=== PATIENT | female | born 1980 | race Caucasian/White ===

== ENCOUNTER 2020-05-24 12:11 | Inpatient (IN) | payer OTHER ==
[~2020-05-24] VITALS: Ht 162.6 cm; Wt 72.0 kg
--- NOTE | ~2020-05-24 | DS ---
[facility] [address], [place] [address] Draft ADMISSION DATE: 05/24/2020 DISCHARGE DATE: 05/26/2020 REASON FOR ADMISSION: This 39-year-old white woman is known to me from the past having undergone pilonidal excision in 1999. She presented to [facility] on May 22, 2020 with right-sided abdominal tenderness and findings consistent with urinary tract infection. A CT scan was performed, which did not show abnormality of the gallbladder or elsewhere. A dose of Rocephin was given intravenously and she was discharged to home with Levaquin. She returned to the emergency room the following day, May 23, 2020 with unremitting severe right-sided abdominal pain, tenderness and fever and white count elevation of greater than 24,000. A CT scan was repeated which showed marked dilation of the gallbladder, thickening of the gallbladder wall, and findings consistent with acute cholecystitis. She was transferred from [place] to [place] after conferring with her primary provider, Dr. Parsons. PERTINENT PHYSICAL EXAMINATION: GENERAL: A pleasant white woman, accompanied by her . VITAL SIGNS: Temperature 98.3, pulse 86, blood pressure 104/68, room air saturation is 100%. NECK: Normal. CHEST: Clear. HEART: Regular without murmur. ABDOMEN: Mildly obese. There was marked tenderness in the right upper abdomen. No palpable mass. She had no ascites. EXTREMITIES: Showed no clubbing, cyanosis, or edema. LABORATORY STUDIES: From [facility] were reviewed showing urinalysis with 50 white cells per high-power field, moderate bacteria, specific gravity is 1.025, pH 7.0. Liver enzymes were normal. CBC showed elevated white count as previously noted. HOSPITAL COURSE: The patient is admitted in the evening, given fluid resuscitation, IV antibiotics, broad-spectrum meropenem considering the extent of inflammation, tenderness, and so forth. On May 25, 2020, she underwent laparoscopic cholecystectomy with intraoperative cholangiogram. The gallbladder was impressively markedly thickened and inflamed with both chronic and acute inflammatory changes. Decompression of the gallbladder showed clear bile indicative of longstanding outlet obstruction of the PATIENT NAME: RUTH FLOWERS DISCHARGE SUMMARY DATE OF : 78 REPORT #: [id number] PHYSICIAN: JAIRO WHITFIELD MD PCP: NO PRIMARY CARE PHYSICIAN REPORT IS CONFIDENTIAL AND NOT TO BE RELEASED WITHOUT AUTHORIZATION [facility] [address], [place] [address] Draft gallbladder itself. Despite the difficulty, laparoscopic cholecystectomy was performed safely. Cholangiogram was normal. A drain was placed. She had prompt improvement of her symptoms and was able to tolerate a regular diet the following day. She is anticipated to discharge. A drain was placed to the operation and showed no sign of bile leak and it was removed prior to discharge. DISCHARGE MEDICATIONS: Include: 1. Motrin 600 mg p.o. q.6 hours as needed for pain #60. 2. Percocet 7.5/325 1-2 p.o. q.6 hours p.r.n. pain #10. 3. Tylenol 500 mg two tablets p.o. q.6 hours as needed for pain #60. 4. She would be advised to continue with her Levaquin antibiotic that was prescribed for urinary tract infection. FOLLOWUP PLAN: She is return to see me in approximately 4 weeks. If she has problems in the meantime, she will let me know. She is to avoid lifting more than 20 pounds for the next 2 weeks, should walk on a daily basis with Steri-Strips in place and okay to shower tomorrow. DISCHARGE DIAGNOSES: 1. Severe acute on chronic calculous cholecystitis. 2. Status post laparoscopic cholecystectomy with intraoperative cholangiogram on May 25, 2020. 3. History of pilonidal excision, age 19. 4. History of x2. 5. History of hysterectomy. 6. Recent urinary tract infections. MD JOSE Bustamante/GLADYSL /[id number] cc: Reyna Jiménez PA-C PATIENT NAME: RUTH FLOWERS DISCHARGE SUMMARY DATE OF : 78 REPORT #: [id number] PHYSICIAN: JAIRO WHITFIELD MD PCP: NO PRIMARY CARE PHYSICIAN REPORT IS CONFIDENTIAL AND NOT TO BE RELEASED WITHOUT AUTHORIZATION [facility] [address] [facility] [place] [address] Draft Jimmy Parsons MD Copies: JIMMY PARSONS MD ~ PATIENT NAME: LIONELRUTH Schmidt DISCHARGE SUMMARY DATE OF : 78 REPORT #: [id number] PHYSICIAN: JAIRO WHITFIELD MD PCP: NO PRIMARY CARE PHYSICIAN REPORT IS CONFIDENTIAL AND NOT TO BE RELEASED WITHOUT AUTHORIZATION
--- NOTE | 2020-05-24 15:21 | NUR ---
PT BROUGHT VIA MED TRANSPORT TO [facility]. PT IS ALERT AND COOPERATIVE, SELF TRANSFERS TO BED. IV SITE PREVIOUSLY ESTABLISHED FLUSHES WELL AND APPEARS INTACT WITH FLUID INFUSING. PT ORIENTED TO THE ROOM DENIES QUESTIONS OR NEEDS THOUGH SHE RATES PAIN 6-7/10. STATES SHE HAS BEEN VERY PAINFUL FOR DAYS WITH NO REAL RELIEF. HOT PACK PROVIDED PRIOR TO MED ORDERS FROM DR WHITFIELD. PAIN MANAGEMENT ED PROVIDED PT VERBALIZES USDERSTANDING.
--- NOTE | 2020-05-24 15:59 | NUR ---
PT IS PRESENT IN THE ROOM. PT RESTING IN BED TV IS ON. SHE STATES SHE IS STILL VERY PAINFUL AT 7/10. 4 MG OF MORPHINE ADMINISTERED.
--- NOTE | 2020-05-24 16:24 | NUR ---
SWABBED BOTH NARES FOR RAPID COVID TEST
--- NOTE | 2020-05-24 16:35 | NUR ---
DR WHITFIELD IN TO SEE PT DISCUSSES DX AND NEED FOR SURGERY. ALL QUESTIONS ANSWERED. IS PRESENT.
[2020-05-24] MEDS ORDERED: IBUPROFEN200 MG PO (17:15)
--- NOTE | 2020-05-24 17:16 | NUR ---
MED REC COMPLETE
--- NOTE | 2020-05-24 17:58 | NUR ---
PT AGREES SHE IS COMFORTABLE STATES THIS IS THE FIRST TIME IN DAYS SHE HAS FELT RELAXED. WARM BLANKET PROVIDED, SCD'D IN PLACE.
--- NOTE | 2020-05-24 18:41 | NUR ---
PATIENT IN BED RESTING. RN IN ROOM TO HAVE PATIENT SIGN CONSENT. VITALS AND I&O'S CHARTED. CALL LIGHT IN REACH. NO FURTHER NEEDS AT THIS TIME.
--- NOTE | 2020-05-24 19:05 | NUR ---
REPORT RECEIVED FROM DAY SHIFT RN. PT LYING IN BED ALERT AND ORIENTED. REPORTS PAIN IS TOLERABLE AT THIS TIME. DENIES NAUSEA. IV ABX INFUSING. UP TO BR WITH MINIMAL SBA TO VOID. GAIT STEADY. BACK TO BED. SCD'S INTACT. POPSICLE PROVIDED PER REQUEST. WHITE BOARD UPDATED. CALL LIGHT IN REACH.
--- NOTE | 2020-05-24 20:00 | NUR ---
PT REQUESTING TO SHOWER. AGREES TO WAIT UNTIL IV ABX INFUSION COMPLETE. PT REPORTS ABD PAIN 10/29. PRN FOR PAIN ADMINISTERED PER EMAR.
--- NOTE | 2020-05-24 21:37 | NUR ---
V/S AND I&O DONE. WARM BLANKETS PROVIDED. ICE WATER REFILLED AND REGULAR SODA PROVIDED.
--- NOTE | 2020-05-24 21:45 | NUR ---
PT SHOWERED. BACK IN BED AT THIS TIME, MAMADOU WELL. SCD'S INTACT. IVF INFUSING. ASSESSMENT COMPLETE. BT ACTIVE. ABD DISTENDED AND SOFT. SCHEDULED MEDS ADMINISTERED. PRN ADMINISTERED FOR PAIN AND NAUSEA. CLEAR LIQUIDS PROVIDED PER REQUEST. PT DENIES QUESTIONS OR CONCERNS. CALL LIGHT IN REACH.
--- NOTE | 2020-05-25 00:07 | NUR ---
PT IN BED WITH EYES CLOSED. AWAKENS WHEN THIS DIRECTOR OF REHABILITATION ENTERS ROOM. LIQUIDS REMOVED. PT AWARE OF NPO STATUS. DENIES NEEDS.
--- NOTE | 2020-05-25 01:50 | NUR ---
0130- CALL LIGHT ANSWERED. PT RATES ABD PAIN 10/10. PRN FOR PAIN ADMINISTERED. IV ABX INFUSING PER ORDER. VS COMPLETE, BP NOTED TO BE LOW. PT ASYMPTOMATIC. UP TO BR TO VOID 200 ML CONCENTRATED URINE. GAIT STEADY. BACK TO BED, MAMADOU FAIR. 0150- PT CONTINUES TO RATE ABD PAIN 8/10. ADDITIONAL PRN ADMINISTERED FOR PAIN. PT STATES "I WAITED TOO LONG" FOR PAIN MEDICATION. DISCUSSED MORE FREQUENT DOSING TO PREVENT OUT OF CONTROL PAIN. WARM BLANKET PROVIDED. PT REMAINS NPO. ORAL SWABS PROVIDED.
--- NOTE | 2020-05-25 03:00 | NUR ---
CALL LIGHT ANSWERED. PT REPORTS ABD PAIN 10/29. PRN FOR PAIN ADMINISTERED PER ORDER. WARM PACK PROVIDED FOR COMFORT. NO FURTHER NEEDS. CALL LIGHT IN REACH.
--- NOTE | 2020-05-25 05:11 | NUR ---
IN TO ROUND ON PT. PT OPENS EYES WHEN THIS METALSMITH HELPER ENTERS ROOM. REPORTS ABD PAIN 6/10 AND SOME NAUSEA. PRN FOR PAIN AND NAUSEA ADMINISTERED PER EMAR. IV ABX COMPLETE. IVF INFUSING. PT DENIES FURTHER NEEDS. CALL LIGHT IN REACH.
--- NOTE | 2020-05-25 07:03 | NUR ---
VS AND I&O COMPLETE. PRN ADMINISTERED FOR 10/29 ABD PAIN. PT DENIES NAUSEA AT THIS TIME. UP TO BR WITH MINIMAL SBA TO VOID 100 ML CONCENTRATED URINE. PT DENIES PAIN WITH URINATION. BACK TO BED, MAMADOU WELL.
--- NOTE | 2020-05-25 07:38 | NUR ---
this rn recieved report jacque love. pt laying in bed with call light within reach and states pain is mangable at this time
--- NOTE | 2020-05-25 07:45 | NUR ---
THIS RN IN PTS ROOM TO START A NEW IV ON PT. PT TOELRATED WELL
--- NOTE | 2020-05-25 08:05 | NUR ---
THIS RN IN TO GIVE PT HIS MORNING MEDS. PT STATES THAT HE HAS SOME INCREASED PAIN FROM THE ULTRASOUND. THIS RN [facility]
--- NOTE | 2020-05-25 08:35 | NUR ---
THIS RN IN PTS ROOM TO GIVE PT HER MORNING MEDS AND SOME DILUADID FOR PTS PAIN. THIS RN ALSO PROVIDED PT WITH 4MG OF ZOFRAN TO GET PT UP TO A TOTAL OF 8MG OF ZOFRAN IN 4 HRS.
--- NOTE | 2020-05-25 09:30 | NUR ---
THIS RN IN PTS ROOM DUE TO PT REPORTING THAT HE WAS HAVING SOME NAUSEA. PT STATES THAT HE DOESN'T NEED ANY MEDS AT THIS TIME.
--- NOTE | 2020-05-25 09:55 | NUR ---
THIS RN IN PTS ROOM TO GIVE PT MORE DILUADID PER PT REQUEST, DAVID BUSTILLO IN PTS ROOM TO DO PTS VITAILS. PTS HAS A FEVER OF 101.1. THIS RN CALLED - RN OBTAINED VERBAL ORDER FROM TO GIVE PT 1GM OF IV TYLENOL.
--- NOTE | 2020-05-25 10:10 | NUR ---
PATIENT AWAKE IN BED, IN ROOM. VITALS AND I&OS CHARTED. RN NOTIFIED OF 101.1 TEMP
--- NOTE | 2020-05-25 10:15 | NUR ---
THIS RN STARTED PT ON IV TYLENOL.
--- NOTE | 2020-05-25 10:30 | NUR ---
THIS RN TO START NEW ANTIBIOTIC AND GIVE PT 10MG OF OXY AT THIS TIME. PT STATES THAT HE IS DOING OKAY FOR NOW ON NAUSEA
--- NOTE | 2020-05-25 10:40 | NUR ---
PT OFF FLOOR FOR PROCEDURE
--- NOTE | 2020-05-25 13:29 | NUR ---
05/25/20 1329 Brianna Tesfaye 1316 PT ARRIVED IN PACU NON RESPONSIVE TO NOXIOUS STIMULI WITH OPA IN PLACE.
--- NOTE | 2020-05-25 14:17 | NUR ---
PT TAKEN TO OR FOR SURGERY. WAITING IN RM. GAVE ENCOURAGEMENT, DR WHITFIELD ENTERS RM. SURGERY COMPLETE AND IS EXPLAINING TO . GAVE HIM A BLESSING, WILL FOLLOW
--- NOTE | 2020-05-25 14:30 | NUR ---
PT ARRIVED BACK FROM SURGERY AT THIS TIME. PT HAS 3 INSCION SITES AND 1 ALICIA SITE IN THE RIGHT LOWER QUADRANT. ALL ARE CLEAN DRY INTACT. PT ABLE TO STAND UP AND VOID. PT STILL NAUSEOUS. THIS RN CALLED TO GET A NEW ORDER FOR NAUSEA MEDICATION DUE TO PATIENT HAVING 8MG OF ZOFRAN IN 6HRS. THIS RN RECEIVED VERBAL ORDERS OVER THE PHONE TO GIVE PT 12.5MG PHENERGAN Q6HRS.
--- NOTE | 2020-05-25 15:30 | NUR ---
THIS RN IN PTS ROOM TO CEK ON PT FOR POST OPP. PT ALERT AND ORIENTED AT THIS TIME. PT STATES TAHT SHE IS DOING BETTER AFTER 0.5MG DILUADID AND 12.5MG OF PHENERGAN. SURGICAL SITES AND ALICIA DRAIN WNL AT THIS TIME
--- NOTE | 2020-05-25 16:38 | NUR ---
PT RESTING AT THIS TIME. PT ON ROOM AIT AND SATING WELL. PT STATES THAT SHE HAS NO PAIN AND HER NAUSEA COMES AND GOES. INCISIONS ARE ALL CLEAN/ DRY/ INTACT
--- NOTE | 2020-05-25 19:10 | NUR ---
REPORT RECEIVED FROM DANIAL MEADOWS. PATIENT A+O IN BED, IVF INFUSING WNL. ALICIA DRAIN IN PLACE, WNL. PT REPORTS SLIGHT, TOLERABLE PAIN. MADE PLAN FOR PRN MEDICATIONS. PT STATES NO IMMEDIATE NEEDS, CALL LIGHT IN REACH.
--- NOTE | 2020-05-25 20:10 | NUR ---
IN TO GET PT VITALS WITH RN, RN FINISHED UP WITH PT
--- NOTE | 2020-05-25 20:20 | NUR ---
MEDICATIONS ADMINISTERED, PRN DILAUDID AND TORADOL ADMINISTERED FOR 8/10 PAIN. IVF INFUSING WNL. PT AMBULATED TO BR BY SELF TO VOID. ALICIA DRAIN EMPTIED, 20 ML SEROSANGUINOUS. BOWEL TONES ACTIVE, MILD ABD DISTENTION. WARM BLANKET, ICE PACK, HOT PACK FOR BACK PAIN, ICE CHIPS, POPSICLE PROVIDED. NEW IVF HANGING. NO OTHER NEEDS AT THIS TIME, CALL LIGHT IN REACH.
--- NOTE | 2020-05-25 22:27 | NUR ---
PHONE CALL FROM PATIENTS BROTHER. TRANSFERRED TO PATIENT ROOM PER PATIENT OKAY. PHONE IN REACH.
--- NOTE | 2020-05-25 22:43 | NUR ---
PT CALLED AND REQUESTED PRN DILAUDID AND MOTRIN, ADMINISTERED. DISCUSSED IV MEDS VERSUS PO MEDS WITH PATIENT, SHE REPORTS 8/10 PAIN AND WOULD LIKE TO CONTINUE WITH IV MEDICATIONS AT THIS CURRENT TIME. RESTING IN BED, NEW HOT PACK FOR BACK PAIN PROVIDED, IVF INFUSING WNL. CALL LIGHT IN REACH.
--- NOTE | 2020-05-26 00:05 | NUR ---
PT CALLED, REQUESTS TO WALK IN HALLWAY AND FOR PRN PAIN MEDICATION. WALKED 1 FULL LAP IN HALLWAY WITH THIS RN, TOLERATED FAIRLY WELL, PRN PERCOCET ADMINISTERED. IVF INFUSING WNL. NO FURTHER REQUESTS. CALL LIGHT IN REACH
--- NOTE | 2020-05-26 02:14 | NUR ---
IN TO GET 2AM VITALS, RN IN TO HANG IV FLUIDS, NO FURTHER NEEDS AT THIS TIME
--- NOTE | 2020-05-26 02:19 | NUR ---
VITALS COMPLETE. PT STATES UNCOMFORTABLE, PAIN LEVEL 7/10. WARM BLANKETS AND PRN TYLENOL GIVEN. NO FURTHER NEEDS, CALL LIGHT IN REACH
--- NOTE | 2020-05-26 03:40 | NUR ---
ROUNDED ON PATIENT, RESTING IN BED WITH EYES CLOSED, BREATHING EVEN AND UNLABORED. IVF INFUSING WNL. CALL LIGHT IN REACH
--- NOTE | 2020-05-26 05:42 | NUR ---
IN TO GET VITALS, I&Os ARE DONE, FRESH ICE WATER AND SODA GIVEN, NO FURTHER NEEDS AT THIS TIME
--- NOTE | 2020-05-26 05:47 | NUR ---
PRN PERCOCET AND MOTRIN ADMINISTERED FOR 9/10 PAIN. PT TEARY, GRIMACING AND BRACING ABDOMEN. WARM PACK GIVEN FOR BACK PAIN. REPOSITIONED IN BED. VITALS AND I/O'S COMPLETE. ALICIA EMPTIED, 10 ML LIGHT YELLOW DRAINAGE. LAP SITES GAS ENGINE OPERATOR WITH STERI STRIPS, WNL. NEW BAG IVF HUNG. CALL LIGHT IN REACH.
--- NOTE | 2020-05-26 07:10 | NUR ---
SHIFT REPORT FROM GENESIS MEADOWS INCLUDED: Pt 1 day post lap-choley. Pt has been needing all of her PRN IV and PO meds for pain control issues throughout the nightshift. Pt has lap sites x3 and a ALICIA drain that put out 30mls throughout nightshift. Pt had an otherwise uneventful evening. Pt currently resting in bed, wakes to our entry. Pt reports that her pain is "much better now" and denies nausea at this time. Pt denies further needs at this time. Pt in bed, table and call light within reach.
--- NOTE | 2020-05-26 09:15 | NUR ---
MED PASS + ASSESSMENT Pt assessment complete, VSS, BP still somewhat soft. Pt reports that her BP has been staying low since they started giving her the dilaudid and narcotics. Pt denies nausea and dizziness at this time. Pt had about 40% of her breakfast. Pt reports 5/10 pain in her incision sites, PRN tylenol given. Pt lap sites x3 are all dry and intact, scant dried blood on steri strips to sites. ALICIA drain site CDI and draining serosanguenous fluid. Pt bowel tones hypoactive, pt reports passing gas but denies BM. Pt refuses up to chair, but verbally agrees to ambulate with this RN or TESTING ANALYST "after the tylenol has some time to kick in". Pt in bed, lying down, table and call light within reach.
[2020-05-26] MEDS ORDERED: ACETAMINOPHEN500 MG PO (10:05)
[2020-05-26] MEDS ORDERED: IBUPROFEN600 MG PO (10:05)
[2020-05-26] MEDS ORDERED: OXYCODON-ACETA1 EAC2 PO (10:05)
--- NOTE | 2020-05-26 10:16 | OR ---
[facility] [address], [place] [address] Signed DATE OF OPERATION: 05/25/2020 SURGEON: Jairo Whitfield MD PREOPERATIVE DIAGNOSIS: Severe acute calculous cholecystitis. POSTOPERATIVE DIAGNOSES: 1. Severe calculous cholecystitis with fibrosis, multiple gallstones, and "white bile of gallbladder". 2. Papillary skin lesion right upper quadrant. PROCEDURES: 1. Laparoscopic cholecystectomy with intraoperative cholangiogram, prolonged, complicated, difficult. 2. Surgeon-directed fluoroscopy. 3. Excision of skin lesion, right upper quadrant 6 mm. ANESTHESIA: General endotracheal, Bernardo Alex, CLINICAL ORTHOPTIST and local 20 mL of 0.25% Marcaine with epinephrine. INDICATION: This 39-year-old white woman was referred by Dr. Jimmy Beasley from [place], [place] yesterday with a rather severe right subcostal tenderness and [place] [address], but with normal liver enzymes. She was found on CT scan to have a markedly thickened and dilated gallbladder. A CT scan only a few days before had shown no evidence of cholecystitis and she was thought to have symptoms related to urinary tract infection as she did have an abnormal urinalysis. She was accepted in transfer yesterday, has been given fluid resuscitation, broad-spectrum antibiotic meropenem for pain control and now to undergo cholecystectomy preferred by laparoscopic approach. The patient and her understand well. The risks of bleeding, infection, bile duct injury, need for open procedure, failure to cure the problem, and other unforeseen complications. Understanding this, they wished to proceed. FINDINGS: There were omental adhesions in the region of the umbilicus related to prior Electronically Signed By: JAIRO WHITFIELD MD 05/26/20 1016 PATIENT NAME: RUTH FLOWERS OPERATIVE REPORT DATE OF : 78 REPORT #: [id number] PHYSICIAN: JAIRO WHITFIELD MD PCP: NO PRIMARY CARE PHYSICIAN REPORT IS CONFIDENTIAL AND NOT TO BE RELEASED WITHOUT AUTHORIZATION [facility] [address], [place] [address] Signed laparoscopic procedure. Care was taken to provide pneumoperitoneum safely. The gallbladder itself was quite markedly inflamed, thickened, leather-like, and completely distended. Decompression showed clear bile consistent with occlusion of the outlet of the gallbladder. Market fibrosis of omental adhesions around the gallbladder were noted. The gallbladder was excised though it was quite a challenge, given the fibrosis extent of thickening and so forth. Once excised, the gallbladder was noted to have marked inflammatory change of the mucosa and multiple yellow mulberry gallstones. Cholangiogram was normal. There was a papillary skin lesion in the right upper quadrant, which was excised as well. DESCRIPTION OF PROCEDURE: The patient was brought to the operating room, given a general endotracheal anesthetic. Preoperative antibiotic meropenem had been given. Sequential compression device stockings were used and heparin subcutaneously administered. After satisfactory general endotracheal anesthesia, the abdomen was prepared with a chlorhexidine solution and draped sterilely. An infraumbilical incision was made noting an inferior circumareolar incision from prior laparoscopy. The abdomen was entered without problem using an open Sudha cannula technique. Omental adhesions were noted at this site. Digital examination showed no sign of bowel loops. Omental adhesions were freed with both electrocautery and blunt dissection to allow for accommodation of the Sudha cannula. Pneumoperitoneum was achieved to a level of 14 mmHg with carbon dioxide gas. Intraabdominal inspection showed no sign of ascites or carcinomatosis. The gallbladder appeared to be densely adherent to the right sub-hepatic area with densely formed omental adhesions around it. An epigastric port was placed and manipulation of the omentum showed it to be in a cocoon configuration, but the gallbladder could be from it. A right midclavicular papular skin lesion was noted. It was medium in pigmentation and was excised fully and passed for pathology. The site was then used as a 5 mm trocar site. An additional right anterior actually 5 mm trocar site was placed as well. The gallbladder could not be grasped. It was tensed, distended, and leathery in its configuration. It was decompressed with a laparoscopic trocar site showing clear bile indicative of course of outlet obstruction from the gallbladder itself. The gallbladder was ultimately able to be grasped and elevated cephalad. The infundibulum was quite amorphous. Dissection was maintained high in the gallbladder and the infundibulum. Dissection carried through the very thick and fibrotic peritoneum. Ultimately, the infundibulum proper could be well identified, and using electrocautery dissection, meticulous care was taken ultimately to identify the cystic duct itself. An angled laparoscopic instrument was placed behind the cystic duct. Photographs were taken. A clip was applied across gallbladder cystic duct junction as high as possible in a transverse choledochotomy made in the cystic duct. Egress of clear bile was noted. Electronically Signed By: JAIRO WHITFIELD MD 05/26/20 1016 PATIENT NAME: RUTH FLOWERS OPERATIVE REPORT DATE OF : 78 REPORT #: [id number] PHYSICIAN: JAIRO WHITFIELD MD PCP: NO PRIMARY CARE PHYSICIAN REPORT IS CONFIDENTIAL AND NOT TO BE RELEASED WITHOUT AUTHORIZATION [address], [place] [address] Signed Using an Dai-type cholangiocatheter, intraoperative cholangiography was undertaken showing free flow of contrast in the biliary tree with prompt emptying into the duodenum. Several views were taken to fully visualize the entire biliary duct. There was no sign of filling defect or biliary anomaly. The catheter was removed and the cystic duct was triply clipped and divided. The gallbladder was then dissected free in a retrograde fashion. Due to fibrosis in the region of the cystic duct, meticulous care was maintained in this area. Ultimately, clips were applied to small branches though fibrotic changes were encompassing the cystic arterial branches quite markedly. Further retrograde dissection was undertaken, never identifying a perfect plane between the gallbladder in the liver that rather identifying quite marked fibrosis and thickening. Obviously, this problem a long-standing one. The gallbladder was entered at one point and the yellow mulberry gallstones were identified. Care was taken to maintain the appropriate plane and ultimately the gallbladder was excised freely. The gallbladder was placed in an endobag and free mulberry yellow gallstones placed in it as well and the gallbladder extracted through the infraumbilical port site. The gallbladder was opened on the back table and found to have seven mulberry yellow gallstones. Two such gallstones were still in the subhepatic space and they were removed with appropriate laparoscopic instrumentation. Irrigation was undertaken in the subhepatic space. There was no sign of bile leak or bleeding. Marked fibrotic changes of a hepatic fossa were noted and CO2 powered Tisseel was applied to the subhepatic space after cautery was once again applied. This provided good hemostasis. Through right-sided trocar site, a 7 mm flat Lance drain was placed in the subhepatic space. It was secured to the skin with nylon suture. Excess irrigation fluid was suctioned free. Evaluation of the umbilical area showed only omental adhesions. No sign of bowel loops in the region. The trocars were removed under direct visualization showing no bleeding. The infraumbilical fascial incision was reapproximated with interrupted 0 Vicryl suture. All wounds were copiously irrigated with saline solution. A 20 mL of 0.25% Marcaine with epinephrine was injected locally. The skin was closed with interrupted 2-0 Vicryl. Steri-Strips were applied. The drain was attached to bulb suction. There was no evidence of bile leak. This operation was prolonged, complicated, and difficult, taken at least 3 times longer than expected all related to this area of inflammation. Jairo Whitfield MD JM/MODL Electronically Signed By: JAIRO WHITFIELD MD 05/26/20 1016 PATIENT NAME: RUTH FLOWERS OPERATIVE REPORT DATE OF : 78 REPORT #: [id number] PHYSICIAN: JAIRO WHITFIELD MD PCP: NO PRIMARY CARE PHYSICIAN REPORT IS CONFIDENTIAL AND NOT TO BE RELEASED WITHOUT AUTHORIZATION [address] [address] Signed /[id number] cc: Alessandra Oneil MD Copies: ALESSANDRA ONEIL MD ~ Electronically Signed By: JAIRO WHITFIELD MD 05/26/20 1016 PATIENT NAME: RUTH FLOWERS Roxana OPERATIVE REPORT DATE OF : 78 REPORT #: [id number] PHYSICIAN: JAIRO WHITFIELD MD PCP: NO PRIMARY CARE PHYSICIAN REPORT IS CONFIDENTIAL AND NOT TO BE RELEASED WITHOUT AUTHORIZATION
--- NOTE | 2020-05-26 10:16 | HP ---
[facility] [address], [place] [address] Signed ADMISSION DATE: 05/24/2020 REASON FOR ADMISSION: Acute cholecystitis. HISTORY OF PRESENT ILLNESS: This 39-year-old white woman is known to me from the past having undergone pilonidal excision in 1999. She presented to [facility] Emergency Room on May 22, 2020 with right-sided abdominal tenderness and findings consistent with urinary tract infection. She was given a dose of Rocephin intravenously and discharged to home with Levaquin. She returned to the emergency room the following day, May 23 with unremitting severe right-sided abdominal tenderness, fever, and elevated white count to 24,000. A CT scan of the abdomen and pelvis with IV and p.o. contrast was obtained, which showed obvious inflammation of the gallbladder, dilation of the gallbladder, gallbladder wall thickening and stranding in the surrounding soft tissue consistent with acute cholecystitis. She is transferred upon discussion with Dr. Parsons, her managing physician to [place] for further management. PAST MEDICAL HISTORY: Surprisingly unremarkable. She did have pilonidal excision as previously noted by me 21 years ago and has since undergone section x2, ultimately total hysterectomy and breast biopsy excision. She has never smoked and she does not drink alcohol. She has no known drug allergies. A COVID-19 test has proven to be negative thus far. SOCIAL HISTORY: She is . She has two children. She lives in [place], [place]. 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 She has no primary care physician otherwise. REVIEW OF SYSTEMS: She denies any shortness of breath or chest pain. She has had no dysphagia, dysuria, hematemesis or blood per rectum. PHYSICAL EXAMINATION: GENERAL: Very pleasant white woman, accompanied by her . CURRENT VITAL SIGNS: Show temperature of 98.3, pulse 86, blood pressure 104/68, room air saturation 100%. NECK: Shows no thyromegaly or cervical adenopathy. Trachea is midline. CHEST: Shows normal respiratory excursion. Electronically Signed By: JAIRO WHITFIELD MD 05/26/20 1016 PATIENT NAME: RUTH FLOWERS HISTORY AND PHYSICAL DATE OF : 78 REPORT #: [id number] PHYSICIAN: JAIRO WHITFIELD MD PCP: NO PRIMARY CARE PHYSICIAN REPORT IS CONFIDENTIAL AND NOT TO BE RELEASED WITHOUT AUTHORIZATION [facility] [address], [place] [address] Signed HEART: Regular. ABDOMEN: Mildly obese. She has marked tenderness in right upper abdomen. No palpable masses noted. She has no ascites. EXTREMITIES: Show no clubbing, cyanosis, or edema. LABORATORY STUDIES: Show a coronavirus study in [place] that is pending. Lab studies from [place], [place] are reviewed, which showed a urinalysis abnormal on 05/22/2020 with white cells 50 per high-power field, moderate bacteria were noted. Specific gravity 1.025, pH 7.0. Her lab studies showed normal amylase of 83, lipase of 32. Electrolytes normal. Creatinine 0.6, alkaline phosphatase 125, AST 23, ALT 22, bilirubin 0.5, platelet count is 298,000, hematocrit initially 41. I have reviewed an image of her CT scan which, showed dilated gallbladder with thickening consistent with acute cholecystitis. CT scan has been imported into our system, but is not accessible for other details at this time. ASSESSMENT: The patient has had recurrent bouts of right upper abdominal pain for a number of months, now culminated in the past few days of persistent and unrelenting right upper abdominal pain with tenderness highly consistent with acute cholecystitis. We discussed the pathophysiology of this problem with illustrations and so forth. I would recommend cholecystectomy as well as cholangiogram. The risk of bleeding, infection, bile duct injury, need for open procedure, and of course, need for other indicated procedures including open procedure were reviewed in detail with the patient and her , they understand and agree. As it is late in the day, we will plan for additional fluids to be given, IV antibiotics, parenteral pain medication, anticipating laparoscopic cholecystectomy possible procedure tomorrow. If things should change adversely, which would prompt expedited cholecystectomy that can be done of course. MD JOSE Bustamante/GLADYSL /[id number] cc: Jimmy Parsons MD Electronically Signed By: JAIRO WHITFIELD MD 05/26/20 1016 PATIENT NAME: RUTH FLOWERS HISTORY AND PHYSICAL DATE OF : 78 REPORT #: [id number] PHYSICIAN: JAIRO WHITFIELD MD PCP: NO PRIMARY CARE PHYSICIAN REPORT IS CONFIDENTIAL AND NOT TO BE RELEASED WITHOUT AUTHORIZATION [address] [address] Signed Copies: JIMMY PARSONS MD ~ Electronically Signed By: JAIRO WHITFIELD MD 05/26/20 1016 PATIENT NAME: RUTH FLOWERS HISTORY AND PHYSICAL DATE OF : 78 REPORT #: [id number] PHYSICIAN: JAIRO WHITFIELD MD PCP: NO PRIMARY CARE PHYSICIAN REPORT IS CONFIDENTIAL AND NOT TO BE RELEASED WITHOUT AUTHORIZATION
--- NOTE | 2020-05-26 10:21 | NUR ---
PT CALL LIGHT ON. PT REQUESTS TO GET UP TO SHOWER. IV SALINE LOCKED AND COVERED FOR SHOWER. PT UP INDEPENDANTLY FOR SHOWER. PT ASKS IF HER ABX CAN INFUSE MORE QUICKLY BECAUSE SHE WOULD "LIKE TO GET GOING SOON POSSIBLE." PHARMACY CALLED, PORTER STATES MEROPENEM CAN BE GIVEN OVER 30 MINUTES. WILL RESTART INFUSION AFTER PTS SHOWER TO BE GIVEN OVER 30 MINUTES. CALL LIGHT WITHIN REACH. PT DENIES ADDITIONAL REQUESTS OR COMPLAINTS AT THIS TIME.
--- NOTE | 2020-05-26 10:42 | NUR ---
ROUNDING + DC ASSESSMENT AND INSTRUCTIONS According to Mimi RN, who spoke to the pharmacist. "PHARMACIST STATES MEROPENEM CAN BE GIVEN OVER 30 MINUTES." IV infusion set to complete within the next 30mins. Pt up to shower indpendently and able to dress self in own clothes. Pt denies dizziness and nausea at this time. Pt reports tolerable pain at this time. Pt agrees to ambulate once more before leaving. Pt instructed to call us when her IV infusion is complete. Pt in bed, table and call light within reach. at bedside.
--- NOTE | 2020-05-26 11:30 | NUR ---
DC Pts vitals taken and IV pulled by Mell BUSTILLO. IV catheter intact, no excess bleeding noted. Pts VSS. Pt is dressed and ready to go. Pt and verbalized understanding of DC instructions, medications, and follow up plans. Pt encouraged to return with worsening s/sx and to call with concerns. Pt wheeled out at this time.
--- NOTE | 2020-05-26 12:23 | NUR ---
BEFORE PATIENT WAS DISCHARGED. THE PATIENT AND I WALKED 2 LAPS AROUND MED SURG. TOOK PATIENT'S IV OUT.
--- NOTE | 2020-05-26 13:33 | NUR ---
PT IS ALERT, ORIENTED AND WAITING FOR DC. HER IS PRESENT, SEEM PLEASED WITH CARE AT [facility]. GAVE ENCOURAGEMENT AND BLESSING.WILL FOLLOW
--- NOTE | 2020-05-27 16:51 | PATH ---
[facility] [address] [place], [place] [address] Signed SPECIMEN(S): A RIGHT SUBCOSTAL SPECIMEN(S): B GALLBLADDER AND STONES SPECIMEN SOURCE: A. RIGHT SUBCOSTAL B. GALLBLADDER AND STONES CLINICAL HISTORY: Acute cholecystitis. 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 B. Gallbladder, cholecystectomy: - Acute on chronic cholecystitis with mucosal and focal galbladder wall necrosis. - Cholelithiasis. NAL:cml:C2NR MICROSCOPIC EXAMINATION: Histologic sections of all submitted blocks are examined by light microscopy. These findings, together with the gross examination, support the pathologic diagnosis. GROSS DESCRIPTION: Two specimens are received in two containers, labeled "MS." A. The specimen, labeled "MS, right subcostal skin lesion," is received in formalin and consists of one irregular shaped skin tissue fragment that measures 0.8 x 0.4 cm. The skin surface shows a pink-batres, lobulated nodule that measures 0.5 cm in greatest dimension. The nodule abuts surgical margins. The specimen is inked and trisected and entirely submitted in cassette (A1). B. The specimen, labeled "MS, gallbladder," is received in formalin and consists of Specimen: Previously opened gallbladder. Dimensions: 8.5 cm in length and 6.7 cm and inner circumference cm. Serosa: Nunez-red, congested and erythematous. Cystic Duct: unobstructed. Calculi: Several yellow gallstones within the container that range in size from 0.7-1.4 cm. Mucosa: Dark red, covered with pink-batres, friable fibromembranous tissue. PATIENT NAME: RUTH FLOWERS PATHOLOGY DATE OF : 78 REPORT #: [id number] PHYSICIAN: TYLOR PATHOLOGY PCP: NO PRIMARY CARE PHYSICIAN REPORT IS CONFIDENTIAL AND NOT TO BE RELEASED WITHOUT AUTHORIZATION [facility] [address] [address] Signed Wall thickness: 0.4 cm. Lymph node: No pericystic lymph nodes are grossly identified. Additional: None. Draw In Hand sections are submitted in cassette (B1). JS (under the direct supervision of a pathologist) The Gross Description was prepared using a voice recognition system. The report was reviewed for accuracy; however, sound-alike word errors, addition and/or deletions may occur. If there is any question about this report, please contact Client Services. PERFORMING LABORATORY: The technical component was performed by [facility] [address] (Township Clerk: Kiera Chavis MD; CLIA# [id number]). [facility] [address] [address] (CLIA# [id number]). Diagnostician: Venita Merlos MD Pathologist Electronically Signed 05/27/2020 Copies: ~ PATIENT NAME: RUTH FLOWERS PATHOLOGY DATE OF : 78 REPORT #: [id number] PHYSICIAN: TYLOR BARAJAS PCP: NO PRIMARY CARE PHYSICIAN REPORT IS CONFIDENTIAL AND NOT TO BE RELEASED WITHOUT AUTHORIZATION
== END 2020-05-26 11:30 | disposition home or self-care (01) | DRG 418 ==
LOC: MS 12:11
PROVIDERS: ADMIT Surgery; ATTEND Surgery
PROC: 0HB7XZZ Excision of Abdomen Skin, External Approach (ICD-10-PCS; 2020-05-25)
PROC: 0FT44ZZ Resection of Gallbladder, Percutaneous Endoscopic Approach (ICD-10-PCS; principal; 2020-05-25 11:00)
PROC: BF101ZZ Fluoroscopy of Bile Ducts using Low Osmolar Contrast (ICD-10-PCS; 2020-05-25 11:00)
DX: K80.13 Calculus of gallbladder with acute and chronic cholecystitis with obstruction (principal); N39.0 Urinary tract infection, site not specified; Z20.822 Contact with and (suspected) exposure to COVID-19; K82.8 Other specified diseases of gallbladder; L98.8 Other specified disorders of the skin and subcutaneous tissue
CPT/HCPCS: 74300; A9270; C9803; J0131; J1100; J1170; J1644; J1885; J2001; J2185; J2270; J2405; J2550; J2704; J3010; J7121; Q9967; U0003

== ENCOUNTER 2021-03-05 18:21 | Emergency (ER) | payer OTHER ==
[~2021-03-05] VITALS: Ht 162.6 cm; Wt 71.7 kg
[~2021-03-05 18:21] MED LIST: ACETAMINOPHEN500 MG PO; IBUPROFEN200 MG PO; IBUPROFEN600 MG PO; OXYCODON-ACETA1 EAC2 PO
== END 2021-03-05 22:07 | disposition home or self-care (01) ==
LOC: ED 18:21
DX: S56.911A Strain of unspecified muscles, fascia and tendons at forearm level, right arm, initial encounter (principal); Z90.710 Acquired absence of both cervix and uterus; X50.9XXA Other and unspecified overexertion or strenuous movements or postures, initial encounter
CPT/HCPCS: 73080; 73110; 99283-25; A9270